=== PATIENT | male | born 1990 | race Caucasian/White ===

== ENCOUNTER 2022-12-25 20:59 | Emergency (ER) | payer MEDICAID ==
[~2022-12-25] VITALS: Ht 172.1 cm; Wt 62.0 kg
[2022-12-25 21:02] VITALS: TEMP 99.1
[2022-12-25 22:09] LABS: ALANINE AMINOTRANSFERASE 32 U/L (12-78); ALBUMIN 4.6 G/DL (3.4-5.0); ALBUMIN/GLOBULIN RATIO 1.3 (1.1-1.5); ALKALINE PHOSPHATASE 62 IU/L (46-116); ANION GAP 12 (8-16); ASPARTATE AMINO TRANSFERASE 24 U/L (10-37); BILIRUBIN,TOTAL 1.3 MG/DL (0.1-1.0); BLOOD UREA NITROGEN 13 MG/DL (7-18); BUN/CREATININE RATIO 15.1 (10.0-20.0); CALCIUM 9.7 MG/DL (8.5-10.1); CHLORIDE 98 MMOL/L (99-107); CREATININE 0.86 MG/DL (0.60-1.10); ETHANOL < 10 MG/DL (<10); GLUCOSE 164 MG/DL (70-104); POTASSIUM 3.6 MMOL/L (3.5-5.1); SODIUM 133 MMOL/L (135-145); TOTAL CARBON DIOXIDE 22.8 MMOL/L (24-32); TOTAL PROTEIN 8.1 G/DL (6.4-8.2); eCRCL 107 ML/MIN; eGFR > 90 ML/MIN
[2022-12-25 22:28] LABS: BASOPHILS # (AUTO) 0.2 X10'3 (0-0.2); BASOPHILS % (AUTO) 1.4 % (0-1); EOSINOPHILS % (AUTO) 0 % (0-6); HEMATOCRIT 44.5 % (42.0-52.0); HEMOGLOBIN 15.2 g/dl (14.0-17.9); LYMPHOCYTES # (AUTO) 1.2 X10'3 (1.1-4.8); LYMPHOCYTES % (AUTO) 6.9 % (21-51); MEAN CORPUSCULAR HEMOGLOBIN 34.7 PG (27.0-31.0); MEAN CORPUSCULAR HGB CONC 34.1 g/dL (33.0-36.5); MEAN CORPUSCULAR VOLUME 101.9 FL (78-98); MEAN PLATELET VOLUME 7.1 FL (7.4-10.4); MONOCYTES # (AUTO) 1.4 X10'3 (0-0.9); MONOCYTES % (AUTO) 8.1 % (2-12); NEUTROPHILS # (AUTO) 14.4 X10'3 (1.8-7.7); NEUTROPHILS % (AUTO) 83.6 % (42-75); PLATELET COUNT 390 X10'3 (140-440); RED BLOOD COUNT 4.37 X10'6 (4.70-6.10); RED CELL DISTRIBUTION WIDTH 13.7 % (11.5-14.5); WHITE BLOOD COUNT 17.2 X10'3 (4.5-11.0)
[2022-12-25 22:39] LABS: URINE AMPHETAMINE SCREEN NEGATIVE (Neg); URINE BARBITUATE SCREEN NEGATIVE (Neg); URINE BENZODIAZEPINES SCREEN NEGATIVE (Neg); URINE CANNABINOID SCREEN POSITIVE (Neg); URINE COCAINE SCREEN NEGATIVE (Neg); URINE METHADONE SCREEN NEGATIVE (Neg); URINE OPIATE SCREEN NEGATIVE (Neg); URINE PHENCYCLIDINE SCREEN NEGATIVE (Neg)
[2022-12-25 23:31] LABS: BILIRUBIN,URINE NEGATIVE (Neg); CLARITY,URINE CLEAR (Clear); COLOR,URINE YELLOW (Yellow); GLUCOSE, URINE NEGATIVE (Neg); KETONES,URINE NEGATIVE (Neg); LEUKOCYTE ESTERASE ,URINE NEGATIVE (Neg); NITRITES, URINE NEGATIVE (Neg); OCCULT BLOOD,URINE NEGATIVE (Neg); PROTEIN,URINE TRACE mg/dl (Neg); UROBILINOGEN,URINE 0.2 E.U/dL (0.2-1.0)
[2022-12-25 23:44] LABS: UA COLLECTION TYPE CLN CATCH MIDSTREAM
[2022-12-25 23:45] LABS: SQUAMOUS EPITHELIAL CELL,UR FEW /LPF (FEW)
[2022-12-25 23:46] LABS: WBC,URINE 0-4 /HPF (0-4)
[2022-12-25 23:47] LABS: BACTERIA,URINE FEW /HPF (Neg); MUCUS STRANDS MANY /LPF (Neg); RBC,URINE 0-2 /HPF (0-2)
[2022-12-25] MEDS ORDERED: pantoprazole 40mg Tablet.DR PO STA (23:48)
[2022-12-25] MEDS ORDERED: LORazepam 1 MG tablet PO ONE (23:50)
[2022-12-26] MEDS ORDERED: SPIR100T5 PO (02:03)
[2022-12-26] MEDS ORDERED: ESTR1PAT93 TOP (02:03)
[2022-12-26] MEDS ORDERED: EMTR1TAB6 PO (02:03)
[2022-12-26] MEDS ORDERED: PROG100C11 PO (02:03)
[2022-12-26] MEDS ORDERED: FLUO-167 PO (02:03)
[2022-12-26] MEDS ORDERED: ASPI-107 PO (02:03)
[2022-12-26] MEDS ORDERED: FINA5TAB11 PO (02:06)
[2022-12-26] MEDS ORDERED: aspirin 81mg, enteric-coated 1 TAB TABLET.DR PO PRN (02:30)
[2022-12-26 02:49] LABS: TOTAL CELLS COUNTED 100
[2022-12-26 02:51] LABS: PLATELET ESTIMATE NORMAL
[2022-12-26 03:00] LABS: ANISOCYTOSIS 1+
[2022-12-26 03:01] LABS: SPHEROCYTES 3+
[2022-12-26 07:50] VITALS: BP 121/95; PULSE 107; O2SAT 99
[2022-12-26] MEDS ORDERED: finasteride 5mg tablet PO SCH (08:00)
[2022-12-26] MEDS ORDERED: spironolactone 50 MG tablet PO SCH (08:00)
[2022-12-26] MEDS ORDERED: emtricitabine/tenofovir 200mg/300mg tablet PO SCH (08:00)
[2022-12-26 08:01] VITALS: RESP 18
[2022-12-26] MEDS: FLUoxetine 20mg capsule PO SCH ×3 (09:08→10:56)
--- NOTE | 2022-12-26 10:27 | NUR ---
PACKET WAS FAXED THIS MORNING BY - MEENAKSHI
[2022-12-26] MEDS ORDERED: PROGESTERONE MICRONIZED 100 MG PO SCH (21:00)
[2022-12-27] MEDS ORDERED: estradiol 0.1mg patch.TDWK TD SCH (08:00)
== END 2022-12-26 13:23 | disposition home or self-care (01) ==
LOC: ER 21:01
DX: F31.9 Bipolar disorder, unspecified (principal); Z20.822 Contact with and (suspected) exposure to COVID-19; D72.829 Elevated white blood cell count, unspecified; Z79.890 Hormone replacement therapy; Z79.899 Other long term (current) drug therapy
CPT/HCPCS: 36415; 80053; 80305; 80320; 81001; 85007; 85025; 87811; 99284

== ENCOUNTER 2022-12-29 01:07 | Emergency (ER) | payer MEDICAID ==
[~2022-12-29] VITALS: Ht 170.2 cm; Wt 70.5 kg
[~2022-12-29 01:07] MED LIST: ASPI-107 PO; EMTR1TAB6 PO; ESTR1PAT93 TOP; FINA5TAB11 PO; FLUO-167 PO; PROG100C11 PO; SPIR100T5 PO
[2022-12-29 01:11] VITALS: BP 120/83; PULSE 91; RESP 17; TEMP 97.9; O2SAT 99
[2022-12-29] MEDS ORDERED: bacitracin 15gm ointment TP ONE (01:35)
[2022-12-29] MEDS ORDERED: TETanus/Pertussis (Acell)/Diphther VAC/PF (Tdap-Adult) 0.5ml syringe IMVAC ONE (01:35)
--- NOTE | 2022-12-29 01:46 | NUR ---
lac cleaned md at bedside to staple lac abx applied
== END 2022-12-29 02:06 | disposition home or self-care (01) ==
LOC: ER 01:08
DX: S01.01XA Laceration without foreign body of scalp, initial encounter (principal); Z88.2 Allergy status to sulfonamides; Z88.8 Allergy status to other drugs, medicaments and biological substances; Z23 Encounter for immunization; Z79.899 Other long term (current) drug therapy; W22.8XXA Striking against or struck by other objects, initial encounter; Y93.89 Activity, other specified; Y92.89 Other specified places as the place of occurrence of the external cause; Y99.8 Other external cause status
CPT/HCPCS: 12001; 90471; 90715; 99283

== ENCOUNTER 2023-01-06 00:17 | Emergency (ER) | payer MEDICAID ==
[~2023-01-06] VITALS: Ht 170.2 cm; Wt 70.6 kg
[2023-01-06 00:26] VITALS: BP 122/56; PULSE 89; RESP 18; TEMP 98.1; O2SAT 98
== END 2023-01-06 02:11 | disposition home or self-care (01) ==
LOC: ER 00:17
DX: S01.01XD Laceration without foreign body of scalp, subsequent encounter (principal); Z88.8 Allergy status to other drugs, medicaments and biological substances; Z88.2 Allergy status to sulfonamides; Z79.01 Long term (current) use of anticoagulants; Z79.899 Other long term (current) drug therapy; W19.XXXD Unspecified fall, subsequent encounter
CPT/HCPCS: 99281